=== PATIENT | female | born 1965 | race Caucasian/White ===

== ENCOUNTER 2019-01-15 11:38 | Emergency (ER) | payer MEDICAID, OTHER ==
[~2019-01-15] VITALS: Ht 165.1 cm; Wt 77.6 kg
[~2019-01-15 11:38] MED LIST: ANAS1TAB56 PO; ASPI81CT95 PO; BENA40TA PO; BENA40TA17 PO; ESOM20EC PO; GABA100C PO; GLU500 PO; IBUP-81 PO; METO25TA14 PO; ORE25 PO; PARO40TA65 PO; PRAV40TA PO; SITA100T8 PO; VIC PO
[2019-01-15 11:47] VITALS: BP 113/83
--- NOTE | 2019-01-15 12:00 | NUR ---
53 Y/O F PRESENTS TO ER C/O RIGHT LEG PAIN SINCE SUNDAY. PT PAIN RADIATES FROM RIGHT CALF TO RIGHT HIP. PT DENIES ANY TRAUMA OR INJURY. PT ALSO PRESENTS WITH RIGHT KNEE PAIN. NO REDNESS OR WARMTH NOTED TO AREA. PT STATES SHE HAS NUMBNESS TO RIGHT UPPER THIGH. PAIN LEVEL 8/10, WITH MOVEMENT. HOB ELEVATED, BED IN LOWEST POSITION, BED RAIL UP X1. ERMD AT PT BEDSIDE. ALLERGIES: LATEX MED HX: BREAST CANCER, DM, HDL, HTN AND SCIATIC NERVE PAIN SURGICAL HX: DOUBLE MASTECTOMY, HYSTERECTOMY
[2019-01-15] MEDS ORDERED: KETOROLAC 60 MG/2 ML VIAL IM ONE (12:15)
--- NOTE | 2019-01-15 12:21 | NUR ---
Ultrasound at bedside.
--- NOTE | 2019-01-15 12:35 | NUR ---
PT LEFT VIA W/C TO XRAY
--- NOTE | 2019-01-15 13:30 | NUR ---
PT STATES PAIN DECREASED TO PAIN LEVEL 4/10
--- NOTE | 2019-01-15 13:55 | NUR ---
PT RESTING IN BED READING A BOOK. VSS. WILL CONTINUE TO MONITOR.
[2019-01-15 14:31] VITALS: BP 113/67
--- NOTE | 2019-01-15 14:32 | NUR ---
Patient discharged with v/s stable. Written and verbal after care instructions given and explained. Patient alert, oriented and verbalized understanding of instructions. Ambulatory with steady gait. All questions addressed prior to discharge. ID band removed. Patient advised to follow up with PMD. Rx of NAPROSYN 250MG given. Patient educated on indication of medication including possible reaction and side effects. Opportunity to ask questions provided and answered.
== END 2019-01-15 14:32 | disposition home or self-care (01) ==
LOC: MED 11:38
DX: M54.9 Dorsalgia, unspecified (principal); M25.551 Pain in right hip; M25.561 Pain in right knee; M71.20 Synovial cyst of popliteal space [Baker], unspecified knee; E11.9 Type 2 diabetes mellitus without complications; I10 Essential (primary) hypertension; Z85.9 Personal history of malignant neoplasm, unspecified; Z79.899 Other long term (current) drug therapy
CPT/HCPCS: 72170; 73502; 73562; 93971; 96372; 99284; J1885; Q0092

== ENCOUNTER 2021-09-16 09:42 | Day surgery (SDC) | payer MEDICAID ==
[~2021-09-16] VITALS: Ht 167.6 cm; Wt 73.5 kg
[2021-09-16] MEDS ORDERED: fentaNYL citrate 0.05 MG/ML VIAL ONE (11:07)
[2021-09-16] MEDS ORDERED: MIDAZOLAM 2 MG/2 ML VIAL ONE ×2 (11:08)
[2021-09-16] MEDS ORDERED: LIDOCAINE 2% 100 MG/5 ML UJET TP ONE (11:08)
[2021-09-16] MEDS ORDERED: fentaNYL citrate 0.05 MG/ML VIAL IVP ONE (12:25)
[2021-09-16] MEDS ORDERED: MIDAZOLAM 2 MG/2 ML VIAL IVP ONE (12:25)
== END 2021-09-16 12:55 | disposition home or self-care (01) ==
LOC: MOR 09:42 → MMU 09:43 → MOR 12:55
PROVIDERS: ATTEND Internal Medicine Gastroenterology
DX: R19.7 Diarrhea, unspecified (principal); K29.80 Duodenitis without bleeding; I10 Essential (primary) hypertension; E11.9 Type 2 diabetes mellitus without complications; E78.5 Hyperlipidemia, unspecified; M19.90 Unspecified osteoarthritis, unspecified site; Z86.73 Personal history of transient ischemic attack (TIA), and cerebral infarction without residual deficits; Z91.040 Latex allergy status; Z79.899 Other long term (current) drug therapy; Z20.822 Contact with and (suspected) exposure to COVID-19
CPT/HCPCS: 36415; 43239; 45380; 86677; 87426; J2250; J3010